=== PATIENT | female | born 1985 | race Caucasian/White ===

== ENCOUNTER → 2016-06-27 | Outpatient (CLI) | payer MEDICAID | LOC: LAB 13:45 | PROVIDERS: ATTEND Obstetrics & Gynecology | DX: N92.6 Irregular menstruation, unspecified (principal) | CPT/HCPCS: 36415; 84703 ==

== ENCOUNTER 2016-07-27 20:57 | Emergency (ER) | payer MEDICAID ==
[~2016-07-27] VITALS: Ht 165.1 cm; Wt 98.0 kg
[2016-07-27 21:02] VITALS: Ht 165.1 cm; Wt 98.0 kg
[2016-07-27] MEDS ORDERED: [UNRECOGNIZED DRUG - CODE] PO (21:10)
--- NOTE | 2016-07-27 21:14 | ERPDOC ---
Departure Disposition Decision Date: July 27, 2016 Disposition Decision Time: 21:57 Disposition: 01 DISCHARGED HOME, SELF-CARE Impression Impression Impression: Primary Impression: Nausea alone Additional Impression: Weeks of gestation: 8 weeks Qualified Codes: Z3A.08 - 8 weeks gestation of Condition: Stable Referrals: TASIA RIVERA MD Follow up as scheduled. Patient Instructions: Nausea and Vomiting in (ED) Problems/Meds/Labs Reviewed?: Yes Medications reviewed and manag: Yes Follow up care ordered?: Yes Mental Status: Alert, Oriented Scripts Ondansetron (Zofran Odt) 4 Mg Tab.rapdis 4 MG PO Q6HR for NAUSEA, #10 TAB Oral disintegrating tablet Prov: JANKI OATES NICHOLE 07/27/16 HPI - Abdominal Pain General Chief Complaint: Nausea,Vomiting,Diarrhea Stated Complaint: NAUSEA WITH Time Seen by Provider: 21:08 Source: patient History/Exam Limitations: no limitations HPI - Abdominal Pain Initial Comments Patient is 8 weeks/2 days with LMP May 28. She is with his of section due to first being breech. Patient complains of nausea, no vomiting for the past 8 weeks. Is scheduled to see Dr Rivera in the near future No vomiting, just nausea and no cramping , vaginal discharge or spotting. Patient states is eating okay although she is nauseated Occurred At: home Onset: Gradual Duration: other (nearly ever day for 8 weeks ) Quality: other (denies pain) Activities at Onset: during/after eating Associated Symptoms: DENIES: back pain, chest pain, diaphoresis, fever/chills, headache, heartburn, shortness of breath Hx of Similar Symptoms: Yes Allergies: Coded Allergies: Sulfa (Sulfonamide Antibiotics) (Verified Allergy, Unknown, SKIN WILL START PEELING OFF, 07/27/16) Past History Past Medical History Pt denies signifigant PMH Neurological: headaches, migraines Musculoskeletal: back pain, neck pain Hematologic: DENIES: anemia Infectious: DENIES: HIV, hepatitis B Review of Systems Constitutional Constitutional: appetite decrease, see HPI, DENIES: chills, dizziness, fever, weakness Eyes General: DENIES: burning, pain Lids/Accessories: DENIES: erythema, swelling Vision: DENIES: double vision ENMT Ears: DENIES: pain Hearing: DENIES: hearing loss, tinnitus Balance: DENIES: vertigo Sinuses: DENIES: rhinorrhea Nose: DENIES: pain Mouth/Throat: DENIES: painful swallowing, sore throat Cardiovascular Cardiac: DENIES: chest pain, dyspnea on exertion, orthopnea Rhythm/Rate: DENIES: irregular beat, palpitations Vascular: DENIES: unilateral swelling Pulmonary Respiratory: DENIES: cough, sputum Physical Exam General Vitals and Pain First Documented Vital Signs Date Time Temp Pulse Resp B/P Pulse Ox O2 Delivery O2 Flow Rate FiO2 07/27/16 21:02 98.1 79 18 137/66 100 Room Air Weight: Kilograms: 98.000 Height (feet): 5 Height (inches): 5.00 Triage Pain Scale: Progress Results/Orders Orders Procedure Category Date Status Time Ua, Dip Wreflex LAB 07/27/16 Complete Microsc & Software Applications Specialist 21:16 Ondansetron Odt PHA 07/27/16 Complete (Zofran Odt) 21:30 Ondansetron Odt PHA 07/27/16 Complete (Prepack) (Zofran Odt 22:00 Lab Results Laboratory Tests Test 07/27/16 21:34 Urine Collection Type Voided-not cc-midstr Urine Color Yellow Urine Turbidity Sl cloudy Urine pH 5.5 Urine Specific [place] >=1.030 Urine Protein Negative Urine Glucose (UA) Negative Urine Ketones Negative Urine Blood Negative Urine Nitrite Negative Urine Bilirubin Negative Urine Urobilinogen 0.2EU/DL Urine Leukocyte Esterase Negative Urinalysis Comment Microscopic not ind. Medications Current ED Medications Ondansetron HCl (Zofran Odt) 4 mg O ONCE PO Last administered on 07/27/16t 21: 28; Start 07/27/16 at 21:30; Stop 07/27/16 at 21:31; Status DC Ondansetron HCl (ZOFRAN ODT (PrePack)) 1 pack O ONCE SENT HOME ; Start at 22:00; Stop 07/27/16 at 22:01; Status DC Progress Progress 2150: Patient is feeling better after zofran. No nausea now. No evidence of UTI. Patient again denies any pelvic pain /cramping or bloody or vaginal d/c. Discussed with patient that she needs to use zofran prn and drink plenty of fluids. Follow up with Dr Rivera as scheduled. JANKI OATES APRN July 27, 2016 21:14
[2016-07-27] MEDS ORDERED: ONDANSETRON ODT 4 MG TAB PO ONE (21:30)
[2016-07-27 21:39] LABS: BLOOD, URINE NEGATIVE (NEGATIVE); COLOR,URINE YELLOW (YELLOW); LEUKOCYTE ESTERASE ,URINE NEGATIVE (NEGATIVE); NITRITE,URINE NEGATIVE (NEGATIVE); UROBILINOGEN,URINE 0.2 EU/DL (NORMAL)
[2016-07-27] MEDS ORDERED: ONDANSETRON ODT 4mg #3 (PrePack) SENT HOME ONE (22:00)
[2016-07-27] MEDS ORDERED: ONDA4TAB7 PO (22:00)
[2016-07-27 22:25] VITALS: BP 137/66; PULSE 79; RESP 18; TEMP 98.1; O2SAT 100
== END 2016-07-27 22:25 | disposition home or self-care (01) ==
LOC: ED 20:57
DX: O26.891 Other specified pregnancy related conditions, first trimester (principal); R11.0 Nausea; Z3A.08 8 weeks gestation of pregnancy
CPT/HCPCS: 81003

== ENCOUNTER 2016-08-03 22:52 | Emergency (ER) | payer MEDICAID ==
[~2016-08-03] VITALS: Ht 166.4 cm; Wt 97.0 kg
[~2016-08-03 22:52] MED LIST: ONDA4TAB7 PO; [UNRECOGNIZED DRUG - CODE] PO
--- OUTSIDE RECORDS SUMMARY | 2016-08-03 22:56 | XMS REPORT | Continuity of Care Document ---
Author Author [facility] Organization [facility] Address Unknown Phone Unavailable Care Team Providers Care Religious Educator Name Role Phone NORMA TINEO APRN Primary Care Physician [phone] Insurance Providers Guarantor Alma Currie Address [address] [address] Email DENIED 07-27-16 Payer [facility] Policy Number [id number] Subscriber's Name KushAlma Relationship 18 Self Effective Date 16 Expiration Date 16 Advance Directives Directive Response Recorded Date/Time Advanced Directives Type None 07/27/16 9:02pm Chief Complaint and Reason for Visit Chief Complaint Nausea,Vomiting,Diarrhea Reason for Visit Nausea alone Problems Active Problems Medical Problem Onset Date Status Nausea alone Unknown Acute Unknown Acute Medications Current Home Medications Medication Dose Units Route Directions Days Qty Instructions Start Date Ondansetron (Zofran Odt) 4 Mg Tab.rapdis 4 Mg Oral Q6h/0300,0900,1500,2100 for Nausea 10 Tablet Oral disintegrating tablet 07/27/16 Vit No.124/Iron/Fa ( Vitamin Tablet) 1 Each Tablet 1 Tab Oral Daily 07/27/16 Social History Social History Problem Response Recorded Date/Time Onset Date Status Chewing Tobacco Status No 07/27/2016 9:09pm Not Applicable Not Applicable Hx Substance Use No 07/27/2016 9:09pm Not Applicable Not Applicable Hx Alcohol Use No 07/27/2016 9:09pm Not Applicable Not Applicable Query Response Start Date Stop Date Smoking Status Never smoker Hospital Discharge Instructions No hospital discharge instructions. Plan of Care Discharge Date 07/27/16 10:25pm Disposition 01 DISCHARGED HOME, SELF-CARE Condition at Discharge Stable Instructions/Education Provided Nausea and Vomiting in (ED) Prescriptions See Medication Section Referrals TASIA MONTERROSO MD Address: [address] [place] [address] [place] [phone] Note: Follow up as scheduled. Functional Status No functional status results. Allergies, Adverse Reactions, Alerts Allergen Type Severity Reaction Status Last Updated Sulfa (Sulfonamide Antibiotics) Allergy Unknown SKIN WILL START PEELING OFF Active 07/27/16 Immunizations No immunization records. Vital Signs Acute Vital Signs Vital Response Date/Time Temperature (Fahrenheit) 98.1 deg F (96.8 - 99.1) 07/27/2016 10:25pm Temperature (Calculated Celsius) 36.50746 degrees C (36.0 - 37.3) 07/27/2016 10:25pm Pulse Rate (adult) 79 bpm (60 - 100) 07/27/2016 10:25pm Respiratory Rate 18 breaths/min (10 - 20) 07/27/2016 10:25pm O2 Sat by Pulse Oximetry 100 % (90 - 100) 07/27/2016 10:25pm Blood Pressure 137/66 mm Hg 07/27/2016 10:25pm Height (Feet) 5 feet 07/27/2016 9:02pm Height (Inches) 5.00 inches 07/27/2016 9:02pm Weight (Kilograms) 98.000 kg 07/27/2016 9:02pm Body Mass Index (BMI) 35.0 07/27/2016 9:02pm Results Laboratory Results Test Name Result Units Flags Reference Collection Date/Time Result Date/ Time Comments Urine Collection Type VOIDED-NOT CC-MIDSTR 07/27/2016 9:34pm 2016 9:39pm Urine Color YELLOW YELLOW 07/27/2016 9:34pm 07/27/2016 9:39pm Urine Turbidity SL CLOUDY CLEAR 07/27/2016 9:34pm 07/27/2016 9:39pm Urine Specific [place] >=1.030 H 1.015-1.025 07/27/2016 9:34pm 2016 9:39pm Urine pH 5.5 5.0-8.0 07/27/2016 9:34pm 07/27/2016 9:39pm Urine Leukocyte Esterase NEGATIVE NEGATIVE 07/27/2016 9:34pm 2016 9:39pm Urine Nitrite NEGATIVE NEGATIVE 07/27/2016 9:34pm 07/27/2016 9:39pm Urine Protein NEGATIVE NEGATIVE 07/27/2016 9:34pm 07/27/2016 9:39pm Urine Glucose (UA) NEGATIVE NEGATIVE 07/27/2016 9:34pm 07/27/2016 9: 39pm Urine Ketones NEGATIVE NEGATIVE 07/27/2016 9:34pm 07/27/2016 9:39pm Urine Urobilinogen 0.2 EU/DL NORMAL 07/27/2016 9:34pm 07/27/2016 9: 39pm Urine Bilirubin NEGATIVE NEGATIVE 07/27/2016 9:34pm 07/27/2016 9: 39pm Urine Blood NEGATIVE NEGATIVE 07/27/2016 9:34pm 07/27/2016 9:39pm Urinalysis Comment MICROSCOPIC NOT IND. 07/27/2016 9:34pm 2016 9:39pm Procedures Procedure Status Date Provider(s) Us exam abdom complete Completed 05/04/16 Routine venipuncture Completed 06/27/16 Chorionic gonadotropin assay Completed 06/27/16 Encounters Encounter Location Arrival/Admit Date Discharge/Depart Date Attending Provider Departed Emergency Room [facility] 07/27/16 8:57pm 07/27/16 10: 25pm MASON LOPEZ DO Registered Clinic [facility] 06/27/16 1:45pm TASIA MONTERROSO MD Registered [facility] 05/04/16 6:34am NORMA TINEO APRN Recent Diagnosis
[2016-08-03 23:01] VITALS: Ht 166.4 cm; Wt 97.0 kg
[2016-08-03] MEDS ORDERED: CYCLOBENZAPRINE 10 MG TABLET PO ONE (23:45)
[2016-08-03] MEDS ORDERED: ACETAMINOPHEN 500 MG TABLET PO ONE (23:45)
[2016-08-04] MEDS ORDERED: ACET-2321 PO (00:15)
--- NOTE | 2016-08-04 00:30 | ERPDOC ---
Departure Disposition Decision Date: August 04, 2016 Disposition Decision Time: 00:50 Disposition: 01 DISCHARGED HOME, SELF-CARE Impression Impression Impression: Primary Impression: Low back pain Chronicity: acute Back pain laterality: bilateral Sciatica presence: without sciatica Qualified Codes: M54.5 - Low back pain Additional Impression: Weeks of gestation: 9 weeks Qualified Codes: Z3A.09 - 9 weeks gestation of Severity: Moderate Condition: Improved Seen By: Physician only Referrals: NORMA TINEO APRN (PCP) 1 Week Patient Instructions: Acute Low Back Pain (ED) Problems/Meds/Labs Reviewed?: Yes Medications reviewed and manag: Yes Additional Instructions: You have low back pain, caused by a pinched nerve. NSAIDs (if approved by your OB), muscle relaxers, ice/heat, and rest help with the symptoms. Follow up with your doctor. Follow up care ordered?: Yes Mental Status: Alert, Oriented Scripts Cyclobenzaprine HCl (Cyclobenzaprine HCl) 10 Mg Tablet 10 MG PO TID Y for MUSCLE SPASM, #40 TAB 0 Refills Prov: JULYMEMO Amaro DO 08/04/16 HPI - Back Pain General Chief Complaint: Low Back Pain or Injury Stated Complaint: BACK PAIN Time Seen by Provider: 23:18 Source: patient Exam Limitations: no limitations HPI - Back Pain Initial Comments 30yo woman presents to the ER tonight for LBP. Pt is 9wks and is not sure what she can take for her LBP. Pt has a h/o LBP in the past; has been taking tylenol with some relief of sx. Pt woke up with pain this AM. Occurred At: home Onset/Timing: Rapid Duration: 12-24 hrs Pain/Severity Scale: Now & Worst: 4/10 Severity/Quality: moderate, dullness Location: lumbar spine Method of Injury/Context: unknown Modifying Factors: IMPROVES WITH: cold therapy, immobilization, pain medication , WORSE WITH: jarring, movement Associated Sypmtoms: lower back pain, muscle spasms, DENIES: fever, loss of bladder control, loss of bowel control, numbness in legs/feet, sensory/motor loss, tingling in legs/feet, weakness Hx of Similar Symptoms: Yes Allergies: Coded Allergies: Sulfa (Sulfonamide Antibiotics) (Verified Allergy, Unknown, SKIN WILL START PEELING OFF, 08/03/16) Past History Past Medical History Neurological: headaches, migraines Musculoskeletal: back pain, neck pain Review of Systems ENMT Teeth: pain (Is seeing a dentist) Musculoskeletal General: pain All other Systems All Other Systems: Reviewed and Negative Physical Exam General General Nourishment: well nourished, well developed, appears stated age, no acute distress, adult, obese General Body Habitus: well groomed Vitals and Pain First Documented Vital Signs Date Time Temp Pulse Resp B/P Pulse Ox O2 Delivery O2 Flow Rate FiO2 08/03/16 23:01 98.7 66 14 145/76 99 Room Air Weight: Kilograms: 97.000 Height (feet): 5 Height (inches): 5.50 Triage Pain Scale: RN VS reviewed by Provider: Yes Musculoskeletal Muscular: FOUND: spasm, NOT FOUND: atrophy, clubbing, trigger point Integumentary (brief) Integumentary Brief: FOUND: pink, warm Neurologic (brief) Neurological Brief: FOUND: CN w/o gross def to obs, DTR 2/4 all extremities, gait w/o gross def to obs, motor-no gross deficits, sensory-no gross deficits, NOT FOUND: Babinski Psychiatric (brief) Psychiatric Brief: FOUND: alert, normal affect, oriented Supervisory Exam Head: atraumatic Eyes: PERRL Nares: no exudate Neck: trachea midline Chest: symmetric Abdomen: non-distended Differential Diagnoses Considering: Disc Herniation, Fracture, Lumbar Sprain, Lumbar Strain, Pyelonephritis, Renal Colic, UTI Progress Results/Orders Orders Procedure Category Date Status Time Acetaminophen PHA 08/03/16 Complete (Tylenol Extra 23:45 Cyclobenzaprine PHA 08/03/16 Complete (Flexeril) 23:45 Ua, Dip Wreflex LAB 08/03/16 Complete Microsc & Tongue Trimmer 23:43 Lab Results Laboratory Tests Test 08/04/16 00:39 Urine Collection Type Cleancatch-midstream Urine Color Yellow Urine Turbidity Sl cloudy Urine pH 6.0 Urine Specific [place] 1.010 Urine Protein Negative Urine Glucose (UA) Negative Urine Ketones Trace Urine Blood Negative Urine Nitrite Negative Urine Bilirubin Negative Urine Urobilinogen 2.0EU/DL Urine Leukocyte Esterase Negative Urinalysis Comment Microscopic not ind. Medications Current ED Medications Acetaminophen (Tylenol Extra Strength) 1,000 mg O ONCE PO Last administered on 08/04/16t 00:12; Start 08/03/16 at 23:45; Stop 08/03/16 at 23:46; Status DC Cyclobenzaprine HCl (Flexeril) 10 mg O ONCE PO Last administered on 08/04/16t 00:12; Start 08/03/16 at 23:45; Stop 08/03/16 at 23:46; Status DC Progress Progress Improved back pain with tylenol and flexeril. Discussed efficacy and safety of NSAIDs through the first two trimesters; discussed the variability of practice of various OBs. Recommended that pt discuss use of NSAID with OB prior to taking. Pt voiced understanding of dx, prognosis, tx, and f/u need. Will d/c with rx for flexeril and instructions to continue tylenol. MEMO DSOUZA DO August 04, 2016 00:30
[2016-08-04 00:47] LABS: BLOOD, URINE NEGATIVE (NEGATIVE); COLOR,URINE YELLOW (YELLOW); LEUKOCYTE ESTERASE ,URINE NEGATIVE (NEGATIVE); NITRITE,URINE NEGATIVE (NEGATIVE)
[2016-08-04] MEDS ORDERED: CYCL-375 PO (00:51)
[2016-08-04 01:00] VITALS: BP 129/68; PULSE 65; RESP 14; TEMP 98.7; O2SAT 98
== END 2016-08-04 01:00 | disposition home or self-care (01) ==
LOC: ED 22:52
DX: O26.891 Other specified pregnancy related conditions, first trimester (principal); M54.5 Low back pain; Z3A.09 9 weeks gestation of pregnancy
CPT/HCPCS: 81003

== ENCOUNTER 2016-08-08 02:10 | Emergency (ER) | payer MEDICAID ==
[~2016-08-08] VITALS: Ht 165.1 cm; Wt 95.5 kg
[~2016-08-08 02:10] MED LIST changes: +ACET-2321 PO; +CYCL-375 PO; -ONDA4TAB7 PO
--- OUTSIDE RECORDS SUMMARY | 2016-08-08 02:14 | XMS REPORT | Continuity of Care Document ---
Author Author [facility] Organization [facility] Address Unknown Phone Unavailable Care Team Providers Care Reel Operator Name Role Phone NORMA TINEO APRN Primary Care Physician [phone] Insurance Providers Guarantor Alma Currie Address [address] [address] Email DENIED 08-04-16 Payer [facility] Policy Number [id number] Subscriber's Name KushAlma Relationship 18 Self Effective Date 16 Expiration Date 16 Chief Complaint and Reason for Visit Chief Complaint Low Back Pain or Injury Reason for Visit Low back pain Problems Active Problems Medical Problem Onset Date Status Nausea alone Unknown Acute Past Problems Medical Problem Onset Date Low back pain Unknown Unknown Medications Current Home Medications Medication Dose Units Route Directions Days Qty Instructions Start Date Acetaminophen (Tylenol) 325 Mg Tablet 2 Tab Oral Four Times Daily 60 Tablet 08/04/16 Cyclobenzaprine Hcl 10 Mg Tablet 10 Mg Oral Three Times A Day as needed for Muscle Spasm 40 Tablet 08/04/16 Vit No.124/Iron/Fa ( Vitamin Tablet) 1 Each Tablet 1 Tab Oral Daily 07/27/16 Past Home Medications Medication Directions Ordered Status Ondansetron (Zofran Odt) 4 Mg Tab.rapdis, 4 Mg Oral Q6h/0300,0900,1500,2100 for Nausea 07/27/16 Discontinued Social History Social History Problem Response Recorded Date/Time Onset Date Status Hx Substance Use No 08/04/2016 12:16am Not Applicable Not Applicable Hx Alcohol Use No 08/04/2016 12:16am Not Applicable Not Applicable Query Response Start Date Stop Date Smoking Status Never smoker Hospital Discharge Instructions No hospital discharge instructions. Plan of Care Discharge Date 08/04/16 1:00am Disposition 01 DISCHARGED HOME, SELF-CARE Condition at Discharge Improved Instructions/Education Provided Acute Low Back Pain (ED) Prescriptions See Medication Section Referrals NORMA TINEO APRN Order Date: 1 Week Address: [address] [place] [id number] Note: Additional Instructions/Education You have low back pain, caused by a pinched nerve. NSAIDs (if approved by your OB), muscle relaxers, ice/heat, and rest help with the symptoms. Follow up with your doctor. Care Plan and Goals Physician Care Plan Problem: LBP Goal: Follow up with primary care provider Instructions: Take medications and follow care plan as discussed/written Functional Status No functional status results. Allergies, Adverse Reactions, Alerts Allergen Type Severity Reaction Status Last Updated Sulfa (Sulfonamide Antibiotics) Allergy Unknown SKIN WILL START PEELING OFF Active 08/03/16 Immunizations No immunization records. Vital Signs Acute Vital Signs Vital Response Date/Time Temperature (Fahrenheit) 98.7 deg F (96.8 - 99.1) 08/04/2016 1:00am Temperature (Calculated Celsius) 37.17372 degrees C (36.0 - 37.3) 08/04/2016 1:00am Pulse Rate (adult) 65 bpm (60 - 100) 08/04/2016 1:00am Respiratory Rate 14 breaths/min (10 - 20) 08/04/2016 1:00am O2 Sat by Pulse Oximetry 98 % (90 - 100) 08/04/2016 1:00am Blood Pressure 129/68 mm Hg 08/04/2016 1:00am Height (Feet) 5 feet 08/03/2016 11:01pm Height (Inches) 5.50 inches 08/03/2016 11:01pm Weight (Kilograms) 97.000 kg 08/03/2016 11:01pm Body Mass Index (BMI) 35.0 08/03/2016 11:01pm Results Laboratory Results Test Name Result Units Flags Reference Collection Date/Time Result Date/ Time Comments Urine Collection Type CLEANCATCH-MIDSTREAM 08/04/2016 12:39am 08/04 12:47am Urine Color YELLOW YELLOW 08/04/2016 12:39am 08/04/2016 12:47am Urine Turbidity SL CLOUDY CLEAR 08/04/2016 12:39am 08/04/2016 12: 47am Urine Specific [place] 1.010 L 1.015-1.025 08/04/2016 12:39am 2016 12:47am Urine pH 6.0 5.0-8.0 08/04/2016 12:39am 08/04/2016 12:47am Urine Leukocyte Esterase NEGATIVE NEGATIVE 08/04/2016 12:39am 2016 12:47am Urine Nitrite NEGATIVE NEGATIVE 08/04/2016 12:39am 08/04/2016 12: 47am Urine Protein NEGATIVE NEGATIVE 08/04/2016 12:39am 08/04/2016 12: 47am Urine Glucose (UA) NEGATIVE NEGATIVE 08/04/2016 12:39am 08/04/2016 12 :47am Urine Ketones TRACE A NEGATIVE 08/04/2016 12:39am 08/04/2016 12:47am Urine Urobilinogen 2.0 EU/DL NORMAL 08/04/2016 12:39am 08/04/2016 12: 47am Urine Bilirubin NEGATIVE NEGATIVE 08/04/2016 12:39am 08/04/2016 12: 47am Urine Blood NEGATIVE NEGATIVE 08/04/2016 12:39am 08/04/2016 12:47am Urinalysis Comment MICROSCOPIC NOT IND. 08/04/2016 12:39am 2016 12:47am Procedures Procedure Status Date Provider(s) Routine venipuncture Completed 06/27/16 Chorionic gonadotropin assay Completed 06/27/16 Encounters Encounter Location Arrival/Admit Date Discharge/Depart Date Attending Provider Departed Emergency Room [facility] 08/03/16 10:52pm 08/04/16 1: 00am MEMO DSOUZA DO Departed Emergency Room [facility] 07/27/16 8:57pm 07/27/16 10: 25pm MASON LOPEZ DO Registered Clinic [facility] 06/27/16 1:45pm TASIA MONTERROSO MD Recent Diagnosis
[2016-08-08 02:17] VITALS: Ht 165.1 cm; Wt 95.5 kg
[2016-08-08] MEDS ORDERED: NORMAL SALINE 1,000 ML IV ONE (02:45)
[2016-08-08] MEDS ORDERED: ONDANSETRON 4mg/2ml INJECTION IV ONE (02:45)
--- NOTE | 2016-08-08 03:54 | ERPDOC ---
Departure Disposition Decision Date: August 08, 2016 Disposition Decision Time: 05:22 Disposition: 01 DISCHARGED HOME, SELF-CARE Impression Impression Impression: Primary Impression: Hyperemesis gravidarum Severity: Severe Condition: Improved Seen By: Physician only Referrals: NORMA TINEO APRN (PCP) Patient Instructions: Hyperemesis Gravidarum (ED) Problems/Meds/Labs Reviewed?: Yes Medications reviewed and manag: Yes Additional Instructions: Zofran 4 mg 4 times daily as needed for vomiting See your OB doctor as scheduled Follow up care ordered?: Yes Mental Status: Alert Scripts Ondansetron (Zofran Odt) 4 Mg Tab.rapdis 4 MG PO Q6HR, #10 TAB Oral disintegrating tablet Prov: WENDY TURNER MD 08/08/16 HPI - Abdominal Pain General Chief Complaint: Nausea,Vomiting,Diarrhea Stated Complaint: OB PT,VOMITING Time Seen by Provider: 02:33 Source: patient History/Exam Limitations: no limitations HPI - Abdominal Pain Initial Comments Patient is tendon half weeks with an intrauterine , has been having vomiting since conception, over the past 24 hours has been unable to eat or drink anything due to vomiting. Occurred At: home, school Associated Symptoms: nausea/vomiting, DENIES: back pain, chest pain, diaphoresis, fatigue, fever/chills, headache, heartburn, rash, shortness of breath, swelling/mass in abdomen, syncope, weakness Hx of Similar Symptoms: Yes Allergies: Coded Allergies: Sulfa (Sulfonamide Antibiotics) (Verified Allergy, Unknown, SKIN WILL START PEELING OFF, 08/08/16) Past History Patient Medical History Problem List Updates: Hyperemesis gravidarum Past Medical History Neurological: headaches, migraines Musculoskeletal: back pain, neck pain Surgical History Denies Surgeries Social History Smoking Status: Never smoker Does patient use chewing tobac: No Second Hand Exposure: No Substance Use Type: does not use Alcohol Intake: none Record Review Pertinent history updated: Yes Review of Systems Constitutional Constitutional: DENIES: appetite decrease, appetite increase, chills, dizziness , fever, weakness ENMT Ears: DENIES: pain Hearing: DENIES: hearing loss, tinnitus Balance: DENIES: vertigo Mouth/Throat: DENIES: change in swallowing, change in voice, hoarsness, painful swallowing, sore throat Cardiovascular Cardiac: DENIES: chest pain, dyspnea on exertion Rhythm/Rate: DENIES: irregular beat, palpitations, tachycardia Vascular: DENIES: pedal edema Pulmonary Respiratory: DENIES: cough, dyspnea, pleuritic chest pain GI Upper Abdomen: nausea, vomiting, DENIES: dysphagia, food intolerances, heartburn/indigestion, hematemesis, pain Lower Abdomen: DENIES: blood in stool, radha-colored stools, constipation, diarrhea, melena, pain, painful BM General: DENIES: burning, dysuria, frequency, pain, urgency Musculoskeletal General: DENIES: cramps, joint pain, joint swelling, pain, weakness Integumentary Skin: DENIES: rash, sores Neurological General: DENIES: headache, numbness, tingling, vertigo, weakness Psychiatric Psychiatric: DENIES: anxiety, depression, nervousness Physical Exam General General Nourishment: well nourished, well developed, appears stated age, no acute distress General Body Habitus: well groomed Vitals and Pain Weight: Kilograms: Height (feet): 5 Height (inches): 5.50 Triage Pain Scale: RN VS reviewed by Provider: Yes Normal Exams: Head: Normocephalic w/o trauma Eyes: Pupils are PERRLA w/ EOMI, No scleral icterus, irritation, or foreign bodies noted Neck: Full range of motion, without adenopathy, JVD, bruits or thyromegaly Chest/Resp: Clear all peter, with good airflow, and symmetry bilaterally CV: Regular rate and rhythm, without murmur or gallop, Pulses 2+ all extremities, capillary refill, <2 seconds all ext., no pedal edema noted Abdomen: Bowel sounds positive, soft, non-tender, non-distended, no hepatosplenomegaly, masses or bruits noted Lymphatic: No lymphadenopathy, or lymphedema noted Musculoskeletal: No tenderness, or deformity noted, good range of motion, all extremities Integumentary: No rashes, hives, or bruising noted, hair and nails, without abnormality Neurologic: Patient is alert, and oriented, cranial nerves, motor/sensory/ cerebellar, exams w/o gross deficits, to observation Psychiatric: Patient exhibits, appropriate attention, emotion and affect ENMT (brief) ENMT Brief: FOUND: normal dentition, NOT FOUND: mucosa moist (dry mouth), nasal erythema, nasal exudate, nasal swelling, pharnyx erythema, tonsillar deviation Progress Results/Orders Orders Procedure Category Date Status Time Iv Lock (Ed Only) EDM 08/08/16 Transmitted 02:33 Ondansetron Inj PHA 08/08/16 Complete (Zofran) 02:45 Normal Saline (Normal PHA 08/08/16 Complete Saline Iv) 02:45 Medications Current ED Medications Ondansetron HCl 4 mg 4 mg O ONCE IV Last administered on 08/08/16 03:47; Start 08/08/16 at 02:45; Stop 08/08/16 at 02:46; Status DC Sodium Chloride (Normal Saline IV) 1,000 ml @ 0 mls/hr Q0M ONCE IV Last administered on 08/08/16 03:47; Start 08/08/16 at 02:45; Stop 08/08/16 at 02:46 ; Status DC Progress Progress Patient given Zofran 4 mg IV, 1 L normal saline IV fluid bolus - to relief, patient tolerating by mouth well WENDY TRUNER MD August 08, 2016 03:54
--- NOTE | 2016-08-08 04:20 | NUR ---
STATUS PT IS RESTING IN BED. DENIES ANY NAUSEA OR VOMITTING AT THIS TIME.
--- NOTE | 2016-08-08 05:10 | NUR ---
PO CHALLENGE PT IS GIVEN WATER TO DRINK AT THIS TIME.
[2016-08-08] MEDS ORDERED: ONDA4TAB7 PO (05:23)
--- NOTE | 2016-08-08 06:05 | NUR ---
IV IVL DC'D WITH CATH INTACT
[2016-08-08 06:10] VITALS: BP 111/56; PULSE 88; RESP 12; TEMP 98; O2SAT 100
--- NOTE | 2016-08-08 06:10 | NUR ---
DISMISSAL DISMISSAL INSTRUCTIONS TO PT WITH RX FOR ZOFRAN. NO FURTHER QUESTIONS AT THIS TIME. PT LEFT AMBULATORY WITH ADULT MALE
== END 2016-08-08 06:10 | disposition home or self-care (01) ==
LOC: ED 02:10
DX: O21.0 Mild hyperemesis gravidarum (principal); Z3A.10 10 weeks gestation of pregnancy
CPT/HCPCS: 96361; 96374; 99284; J2405; J7030

== ENCOUNTER 2017-02-23 01:52 | Inpatient (IN) ==
[2017-02-23] MEDS ORDERED: CEFAZOLIN PREMIX (MC ONLY) 2 GM/50 ML BAG IV ONE (01:56)
[2017-02-23] MEDS ORDERED: CITRIC ACID/SODIUM CITRATE 30ml PO ONE (01:56)
[2017-02-23] MEDS ORDERED: FAMOTIDINE PB 20 MG/50 ML BAG IV ONE (01:56)
[2017-02-23] MEDS: LR 1,000 ML IV SCH ×3 (01:58→04:30)
[2017-02-23 02:22] VITALS: BMI 38.0
[2017-02-23] MEDS ORDERED: NALBUPHINE 10 MG/ML INJECTION IVP PRN (02:32)
[2017-02-23] MEDS ORDERED: ONDANSETRON 4 MG/2 ML INJECTION IVP PRN (02:32)
[2017-02-23] MEDS ORDERED: NALOXONE 2 MG/2 ML INJECTION PFS IVP PRN (02:32)
--- NOTE | 2017-02-23 02:32 | Anesthesia Preoperative Report ---
Anesthesia Epidural/Spinal Rec - Date and Time Date: 02/23/17 Procedure: Plan: Spinal - Vital Signs Vital Signs: Temperature 97.2 F 02/23/17 02:06 Pulse Rate 75 02/23/17 02:06 Respiratory Rate 18 02/23/17 02:06 Blood Pressure 117/62 02/23/17 02:06 Pulse Oximetry 98 02/23/17 02:06 NPO since: 1999 /Para: P:2 - Medictaions & Allergies Inpatient Medications: Current Medications Citric Acid/Sodium Citrate (Oracit) 30 ml PO ONCE ONE Stop: 02/23/17 01:57 Last Admin: 02/23/17 02:05 Dose: 30 ml Cefazolin Sodium/Dextrose (Kefzol Premix ( Only)) 2 gm in 50 mls @ 100 mls/ hr IV PREOP ONE Stop: 02/23/17 02:25 Last Admin: 02/23/17 02:02 Dose: 100 mls/hr Famotidine/Sodium Chloride (Pepcid Premix) 20 mg in 50 mls @ 100 mls/hr IV O ONE Stop: 02/23/17 02:25 Last Admin: 02/23/17 02:01 Dose: 100 mls/hr Lactated Ringer's (Lactated Ringers) 1,000 mls @ 999 mls/hr IV .Q1H1M YRIS Last Admin: 02/23/17 01:58 Dose: 999 mls/hr Allergies/Adverse Reactions: Allergies Allergy/AdvReac Type Severity Reaction Status Date / Time Sulfa (Sulfonamide Allergy Unknown SKIN WILL Verified 08/08/16 05:14 Antibiotics) START PEELING OFF - Home Medications Home Medications: Home Medications Medication Instructions Recorded Confirmed Type Vit No.124/Iron/Folic 1 tab PO DAILY #0 07/27/16 History [ Vitamin Tablet] Acetaminophen [Tylenol] 2 tab PO QID #60 tab 08/04/16 History - Medical History Other History: Reports: Now - Surgical History GI Surgery/Treatments: Reports: Cholecystectomy (2011) Reproductive Surgery/Treatment: Reports: Section Anesthesia Reactions: None Hx Family Anesthesia Reaction: No History of Motion Sickness: No - Social History Smoking Status: Former smoker Second Hand Exposure: No Substance Use Type: does not use Alcohol Intake Frequency: does not drink - Pertinent Findings Lab Data: CBC and BMP 02/23/17 02:14 - Physical Exam Respiratory Exam: lungs clear Cardiovascular Exam: regular rate and rhythm - Airway Assessment Mallampati Score: II TMD: 3 Fingerbreadths Neck Extension: poor Teeth: chipped teeth/crowns, poor dentation Overall Assessment: no airway concerns - ASA ASA Score: 2 - Discussion Discussion: Discussed risks/options/alternatives of anesthesia and questions answered. Patient consents. Nursing pain assessment noted. Anesthesia Discussion: family member Attestation Statement: Prior to the delivery of any anesthetic medication, I examined the patient, developed the plan, obtained the patient's consent and discussed the risk and benefits of the procedure with the patient/guardian.
[2017-02-23] MEDS ORDERED: AZITHROMYCIN IV 500 MG in NS 250ml 250 ML IV ONE (02:50)
[2017-02-23] MEDS ORDERED: EPHEDRINE 50mg/ml INJECTION IM ONE (03:00)
[2017-02-23] MEDS ORDERED: MORPHINE SULFATE PF 5mg/10ml INJ (Duramorph) EPI ONE (03:00)
[2017-02-23] MEDS ORDERED: FentaNYL 100 MCG/2 ML INJECTION IVP ONE (03:00)
[2017-02-23] MEDS ORDERED: SALINE FLUSH 10ml SYRINGE IV ONE (03:00)
[2017-02-23] MEDS: OXYTOCIN BOLUS BAG 30 UNIT/500 ML ML IV SCH ×2 (03:11→04:38)
[2017-02-23] MEDS ORDERED: OXYTOCIN DRIP 30 UNIT/500 ML ML IV SCH ×2 (04:00→04:37)
[2017-02-23] MEDS ORDERED: DiphenhydrAMINE 25 MG CAPSULE PO PRN (04:37)
[2017-02-23] MEDS ORDERED: ACETAMINOPHEN 500 MG TABLET PO PRN (04:37)
[2017-02-23] MEDS ORDERED: D5LR 1,000 ML IV SCH (04:37)
[2017-02-23] MEDS ORDERED: HYDROCORTISONE 2.5% CREAM 30gm RECTALLY PRN (04:37)
[2017-02-23] MEDS ORDERED: RHOPHYLAC - PHARMACY CONSULT MC ONE (04:37)
[2017-02-23] MEDS ORDERED: CALCIUM CARBONATE Chewable 500mg TABLET PO PRN (04:37)
[2017-02-23] MEDS ORDERED: SIMETHICONE 80 MG CHEWABLE TABLET PO PRN (04:37)
--- NOTE | 2017-02-23 10:15 | Anesthesia Postoperative Note ---
- Date and Time Date: 02/22/17 Time: 10:10 - Status Patient Participated in Evaluation: Patient Participated in Person Vital Signs: Temperature 97.2 F 02/23/17 02:06 Pulse Rate 75 02/23/17 02:06 Respiratory Rate 18 02/23/17 02:06 Blood Pressure 117/62 02/23/17 02:06 Pulse Oximetry 98 02/23/17 02:06 Respiratory Function: Airway Patent, Regular Respirations Cardiovascular Function: Regular Pulse Mental Status: Alert and Oriented Pain Intensity: 2 Hydration: Taking PO Fluids Complications During Recover: None Apparent Post Anesthesia Care Notes: moves lower extremeties without problems - Follow-Up Instructions Instructions: Per Surgeon
[2017-02-23] MEDS: IBUPROFEN 800 MG TABLET PO PRN ×2 (12:22→22:37)
[2017-02-23] MEDS: SIMETHICONE 80 MG CHEWABLE TABLET PO SCH ×4 (12:23→22:37)
[2017-02-23] MEDS: HYDROCODONE/APAP 5mg/325mg TABLET PO PRN ×3 (12:23→22:37)
[2017-02-23] MEDS: DOCUSATE CALCIUM 240 MG CAPSULE PO SCH (12:23)
[2017-02-23] MEDS: D5LR 1,000 ML IV SCH ×2 (12:24→18:53)
[2017-02-23 12:32] VITALS: RESP 16
--- NOTE | 2017-02-23 15:27 | Pharmacy Consult ---
Pharmacy Consult-Rhophylac - Laboratory Information 02/23/17 02/23/17 02/23/17 02:01 04:37 08:55 Hgb /Adult Ratio 0.0000 Blood Type A Negative RhIG Candidate? Is a candidate - Consult Information Rh FACTOR CONSULT: Mother Blood Type = A negative Child Blood Type = A positive Hgb / Adult Ratio = 0.0000 Will give Rho D Immunoglobulin 300mcg IV x 1 dose. Thank you, Tamara Rogers [facility]
[2017-02-23] MEDS ORDERED: RHO(D) IMMUNE GLOBULIN 300 MCG/2 ML INJECTION IVP ONE (16:00)
[2017-02-24] MEDS: D5LR 1,000 ML IV SCH (02:37)
[2017-02-24] MEDS: HYDROCODONE/APAP 5mg/325mg TABLET PO PRN ×3 (06:08→20:43)
[2017-02-24] MEDS: IBUPROFEN 800 MG TABLET PO PRN ×2 (06:09→16:33)
[2017-02-24] MEDS: DOCUSATE CALCIUM 240 MG CAPSULE PO SCH (09:23)
[2017-02-24] MEDS: SIMETHICONE 80 MG CHEWABLE TABLET PO SCH ×3 (09:24→20:43)
--- NOTE | 2017-02-24 11:05 | OB/GYN Progress Note ---
OB-Progress Note Free Text - Date Date: 02/24/17 - Progress Note Progress Note: POD #1 VSS AF incision c/d/i amb, voiding, no c/o hgb drop noted q&a-krb
[2017-02-25] MEDS: SIMETHICONE 80 MG CHEWABLE TABLET PO SCH (01:10)
[2017-02-25] MEDS: IBUPROFEN 800 MG TABLET PO PRN ×2 (01:10→10:05)
--- NOTE | 2017-02-25 08:20 | Operative Note ---
DATE OF PROCEDURE: 02/23/2017 PREOPERATIVE DIAGNOSES 1. 31-year-old, 3, para 2, at 38 weeks 5 days gestational age. 2. Previous x 2. 3. Spontaneous rupture of membranes. 4. Meconium. 5. Desires permanent sterilization. POSTOPERATIVE DIAGNOSES 1. 31-year-old, 3, para 2, at 38 weeks 5 days gestational age. 2. Previous x 2. 3. Spontaneous rupture of membranes. 4. Meconium. 5. Desires permanent sterilization. PROCEDURE 1. Repeat low transverse section. 2. tubal ligation via modified [place] method. SURGEON Dr. Carli Rivera MANAGER UTILIZATION Dr. Oseas Tompkins ANESTHESIA Spinal by Toni Zaragoza CRNA COMPLICATIONS None. EBL 1200 ml FINDINGS Viable female , cephalic OP position, meconium-stained fluid, Apgars 8/9, weight 3254 g, name "Lissette." Normal-appearing uterus, tubes and ovaries. INDICATIONS Lissette presented to Maternal Child with complaints of spontaneous rupture of membranes. Her AmniSure was positive. DESCRIPTION OF PROCEDURE The patient was taken to the operating room where anesthesia was obtained. She was placed in the dorsal supine position with a leftward tilt and a [place] catheter was placed. Her previous Pfannenstiel skin incision was on top of her symphysis, so we made an incision 2 cm higher than this. This was carried down to the fascia. The fascia was incised in the midline and extended laterally with the Seth scissors. The fascia was elevated and the underlying rectus muscles were dissected off. The peritoneum was entered during this process. The peritoneal incision was extended superiorly and inferiorly with good visualization of the bladder. The bladder blade was inserted. A small amount of bladder adhesions were taken down and the bladder blade was reinserted. The lower uterine segment was incised in a transverse fashion and bluntly extended. The infant's head was delivered atraumatically. The nose and mouth were suctioned. The cord was clamped and cut. The was handed to Dr. Fortune who was asked to attend due to meconium and unscheduled surgery. The placenta delivered spontaneously. The uterus was exteriorized and cleared of all clots and debris. There was a bleeding uterine vessel on the right edge of the incision. Two ring clamps were used to stop the bleeding. The uterine incision was closed with running locked O Monocryl. This was started at the left edge and brought to the midline. The right edge of the incision was then carefully closed and also brought to the midline. A couple of [id number] were placed on the right edge of the incision for hemostasis. The cautery was used for hemostasis on the serosal edges. An avascular segment of the right fallopian tube was grasped with a [place]. The segment was ligated with chromic. Each end of the segment was ligated with silk. The tube segment was excised and good hemostasis was noted. This was repeated on the patient's left fallopian tube. The uterus was returned to the abdomen. The gutters were cleared of all clots and debris. The uterine incision was inspected one final time and still noted to be hemostatic. The peritoneum was closed with running 2-0 Vicryl. Hemostasis was obtained in the rectus muscles with the cautery. The fascia was closed with running 0 Vicryl. Hemostasis was obtained in the subcutaneous tissue with the cautery. Priti's fascia was closed with running 2-0 chromic. The skin was closed with kaden. Sponge, sharp and instrument counts were correct. The patient tolerated the procedure well and was taken to the recovery room in good condition. DAVID
--- NOTE | 2017-02-25 08:26 | OB/GYN Progress Note ---
OB-PP Progress Note - General PPD2 POD:: POD2 Maternal Group B Strep: Negative Maternal blood type: A- Maternal Rubella Status: Immune - Subjective Date: 02/25/17 Lochia: Moderate Pain: controlled Voiding: voiding Nausea or Vomiting Present: No - Objective Vital Signs: Last Vital Signs Temp 98.6 F 02/25/17 00:58 Pulse 104 H 02/25/17 00:58 Resp 16 02/25/17 00:58 BP 127/79 02/25/17 00:58 Pulse Ox 100 02/25/17 00:58 General: alert and oriented Respiratory: non-labored Abdomen: fundus firm Incision: normal, clean, dry Incision: Kitty intact Extremities: non-tender Edema: none - Assessment Assessment: SP, Repeat C/S, Tubal Ligation - Plan Plan: routine care Expected date of discharge: 02/25/17
[2017-02-25 08:31] VITALS: BP 118/76; PULSE 78; TEMP 98.3; O2SAT 98
[2017-02-25] MEDS: HYDROCODONE/APAP 5mg/325mg TABLET PO PRN (10:05)
[2017-02-25] MEDS: DOCUSATE CALCIUM 240 MG CAPSULE PO SCH (10:05)
== END 2017-02-25 11:25 | disposition home or self-care (01) | DRG 766 ==
LOC: OBOBS 01:52 → MC 01:54
PROVIDERS: ADMIT Obstetrics & Gynecology; ATTEND Obstetrics & Gynecology